=== PATIENT | female | born 2000 ===

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

== ENCOUNTER 2021-01-11 14:17 | Outpatient (REF) | payer MEDICAID, SELFPAY ==
[2021-01-11 21:39] LABS: TSH (W/Ref FT4) 2.62 uIU/mL (0.52-4.13)
== END 2021-01-11 14:18 | disposition home or self-care (01) ==
LOC: NCHCN 14:17
PROVIDERS: PCP Registered Nurse; Visit Provider Registered Nurse
DX: R94.6 Abnormal results of thyroid function studies (principal)
CPT/HCPCS: 84443

== ENCOUNTER 2021-04-09 15:58 | Outpatient (REF) | payer MEDICAID, SELFPAY ==
[2021-04-11 14:56] LABS: COVID-19 RT-PCR UVMMC Result Negative (Negative)
== END 2021-04-09 15:59 | disposition home or self-care (01) ==
LOC: NCHCN 15:58
PROVIDERS: PCP Registered Nurse; Visit Provider Nurse Practitioner Family
DX: Z20.822 Contact with and (suspected) exposure to COVID-19 (principal)
CPT/HCPCS: U0003

== ENCOUNTER 2022-11-27 13:10 | Outpatient (REF) | payer MEDICAID, SELFPAY ==
--- NOTE | 2022-11-27 09:45 | PAPFT_PTH ---
PATIENT: Ann Marie Welch LOC: [facility] U#:[id number] AGE/SX: 22/F ROOM: RE11/27/[address]: Sallie Flower : 2000 BED: DIS: 11/27/2022 SPEC #: [id number] RECD: 11/27/22 17:16 STATUS: ARNULFO RETroy #: [id number] ABRAHAM: 11/27/22 09:[address]: Sallie Flower DEPT: [facility] Cytology RECD BY: Shiela Zapata Tissues: 1 - CX/ENDOCX FOR PAP SMEARS Procedures: PAP THIN PREP/[facility] Screening Comments: [id number] (CHLAMYDIA/GC)
[2022-11-28 14:30] LABS: GC Result Negative (Negative)
[2022-11-28 14:52] LABS: Chlamydia Result Positive (Negative)
[2022-11-29 13:23] LABS: HIV-1/2 Ag & Ab Screen Negative (Negative)
== END 2022-11-27 13:11 | disposition home or self-care (01) ==
LOC: NCHCN 13:10
PROVIDERS: PCP Registered Nurse; Visit Provider Registered Nurse
DX: Z12.4 Encounter for screening for malignant neoplasm of cervix (principal); Z11.3 Encounter for screening for infections with a predominantly sexual mode of transmission; N89.8 Other specified noninflammatory disorders of vagina
CPT/HCPCS: 87389; 87491; 87591; 88142; 87480; 87510; 87660

== ENCOUNTER 2023-01-30 14:15 | Outpatient (REF) | payer MEDICAID, SELFPAY ==
[2023-01-31 22:10] LABS: Chlamydia Result Negative (Negative); GC Result Negative (Negative)
== END 2023-01-30 14:16 | disposition home or self-care (01) ==
LOC: NCHCN 14:15
PROVIDERS: PCP Registered Nurse; Visit Provider Family Medicine
DX: Z11.3 Encounter for screening for infections with a predominantly sexual mode of transmission (principal)
CPT/HCPCS: 87491; 87591

== ENCOUNTER 2023-02-27 22:00 | Outpatient (REF) | payer MEDICAID, SELFPAY ==
[2023-03-02 14:07] LABS: Chlamydia Result Negative (Negative); GC Result Negative (Negative)
== END 2023-02-27 22:01 | disposition home or self-care (01) ==
LOC: NCHCN 22:00
PROVIDERS: PCP Registered Nurse; Visit Provider Family Medicine
DX: R30.0 Dysuria (principal); R82.79 Other abnormal findings on microbiological examination of urine; Z11.3 Encounter for screening for infections with a predominantly sexual mode of transmission
CPT/HCPCS: 87077; 87491; 87591; 87086; 87186

== ENCOUNTER 2024-07-12 15:42 | Outpatient (REF) | payer MEDICAID, SELFPAY ==
[2024-07-14 13:18] LABS: Bacterial Vaginosis (BV) Positive (Negative); Candida glabrata Negative (Negative); Candida species group Positive (Negative); Chlamydia Result Negative (Negative); GC Result Negative (Negative); Trichomonas vaginalis Negative (Negative)
== END 2024-07-12 15:43 | disposition home or self-care (01) ==
LOC: NCHCN 15:42
PROVIDERS: PCP Registered Nurse; Visit Provider Family Medicine
DX: N89.8 Other specified noninflammatory disorders of vagina (principal); N76.0 Acute vaginitis
CPT/HCPCS: 81513; 87481; 87491; 87591; 87661

== ENCOUNTER 2024-10-17 15:35 | Outpatient (REF) | payer MEDICAID, SELFPAY ==
[2024-10-18 19:30] LABS: Hepatitis C Ab w Rflx HCV PCR Negative (Negative)
[2024-10-18 20:22] LABS: HIV-1/2 Ag & Ab Screen Negative (Negative)
[2024-10-19 12:23] LABS: HSV Type 1 Ab, IgG Positive (Negative); HSV Type 2 Ab, IgG Negative (Negative)
[2024-10-19 12:24] LABS: Chlamydia Result Negative (Negative); GC Result Negative (Negative)
[2024-10-19 12:36] LABS: Syphilis Serology (RPR) Negative (Negative)
[2024-10-21 14:00] LABS: HSV 1 PCR Negative (Negative); HSV 2 PCR Positive (Negative)
== END 2024-10-17 15:36 | disposition home or self-care (01) ==
LOC: NCHCN 15:35
PROVIDERS: PCP Registered Nurse; Visit Provider Family Medicine
DX: R39.89 Other symptoms and signs involving the genitourinary system (principal); Z11.3 Encounter for screening for infections with a predominantly sexual mode of transmission
CPT/HCPCS: 86803; 87389; 87491; 87529; 87591; 86592; 86695; 86696